=== PATIENT | female | born 1975 | race Two or more races ===

== ENCOUNTER 2018-04-05 15:35 | Emergency (ER) | payer OTHER ==
[~2018-04-05] VITALS: Ht 152.4 cm; Wt 70.3 kg
[2018-04-05] MEDS ORDERED: TENORMIN25 MG (15:43)
== END 2018-04-05 16:56 | disposition home or self-care (01) ==
LOC: ER 15:35
DX: M54.2 Cervicalgia (principal); M62.838 Other muscle spasm

== ENCOUNTER → 2018-12-17 | Emergency (ER) | payer OTHER ==
[~2018-12-17] VITALS: Ht 152.4 cm; Wt 71.2 kg
[~2018-12-17] MED LIST: CEFACLOR500 MG PO; TENORMIN25 MG
== END | disposition home or self-care (01) ==
LOC: ER 02:43
DX: H66.91 Otitis media, unspecified, right ear (principal)

== ENCOUNTER 2020-12-05 16:01 | Emergency (ER) | payer OTHER ==
[~2020-12-05] VITALS: Ht 152.4 cm; Wt 74.4 kg
[2020-12-05] MEDS ORDERED: COZAAR25 MG (16:46)
[2020-12-05] MEDS ORDERED: PRILOSEC OTC20 MG (16:47)
[2020-12-05] MEDS ORDERED: PEPCID AC20 MG PO (19:07)
== END 2020-12-06 | disposition home or self-care (01) ==
LOC: ER 16:01
DX: K21.9 Gastro-esophageal reflux disease without esophagitis (principal); R07.89 Other chest pain; I10 Essential (primary) hypertension

== ENCOUNTER 2021-11-26 05:20 | Emergency (ER) | payer OTHER ==
[~2021-11-26] VITALS: Ht 152.4 cm; Wt 70.8 kg
[~2021-11-26 05:20] MED LIST changes: +COZAAR25 MG; +PEPCID AC20 MG PO; +PRILOSEC OTC20 MG
== END 2021-11-26 08:28 ==
LOC: ER 05:20
DX: R00.2 Palpitations (principal); Z88.2 Allergy status to sulfonamides; I10 Essential (primary) hypertension

== ENCOUNTER 2022-10-02 06:33 | Emergency (ER) | payer OTHER ==
[~2022-10-02] VITALS: Ht 152.4 cm; Wt 71.2 kg
[~2022-10-02 06:33] MED LIST changes: +ATIVAN1 M1 PO
[2022-10-02] MEDS ORDERED: COZAAR50 MG PO (06:51)
[2022-10-02] MEDS ORDERED: MAALOX ADVANCE355 ML PO (09:33)
== END 2022-10-02 09:50 | disposition home or self-care (01) ==
LOC: ER 06:33
DX: R13.10 Dysphagia, unspecified (principal); I10 Essential (primary) hypertension; Z88.0 Allergy status to penicillin; Z88.2 Allergy status to sulfonamides

== ENCOUNTER 2023-03-30 09:04 | Emergency (ER) | payer OTHER ==
[~2023-03-30] VITALS: Ht 152.4 cm; Wt 69.4 kg
[~2023-03-30 09:04] MED LIST changes: +COZAAR50 MG PO; +MAALOX ADVANCE355 ML PO
[2023-03-30] MEDS ORDERED: ATIVAN1 M1 PO (09:16)
[2023-03-30 10:34] LABS: HEMOGLOBIN 14.1 g/dL (12.0-15.00); MEAN CELL VOLUME 87.3 fL (80.00-100.00); MEAN CORPUSCULAR HGB CONC 34.3 g/dl (32.0-36.0); PLATELET COUNT 215 K/uL (150-450); RED BLOOD COUNT 4.69 M/uL (4.00-6.00); RED CELL DISTRIBUTION WIDTH 13.2 % (11.5-14.5)
== END 2023-03-30 11:30 | disposition home or self-care (01) ==
LOC: ER 09:05
PROVIDERS: General Practice
DX: J32.9 Chronic sinusitis, unspecified (principal); Z88.0 Allergy status to penicillin; Z88.2 Allergy status to sulfonamides

== ENCOUNTER 2023-09-06 16:37 | Emergency (ER) | payer OTHER ==
[~2023-09-06] VITALS: Ht 165.1 cm; Wt 67.1 kg
[2023-09-06] MEDS ORDERED: LOSARTAN POTAS100 MG PO (16:56)
[2023-09-06] MEDS ORDERED: KETOROLAC TROMETHAMINE 30 MG VIAL ONE (17:20)
[2023-09-06] MEDS ORDERED: KETOROLAC TROMETHAMINE 30 MG VIAL IM ONE (17:30)
[2023-09-06 17:32] LABS: HEMATOCRIT 40.3 % (36.0-45.00); HEMOGLOBIN 13.7 g/dL (12.0-15.00); MEAN CELL VOLUME 88.3 fL (80.00-100.00); PLATELET COUNT 217 K/uL (150-450); RED BLOOD COUNT 4.56 M/uL (4.00-6.00); RED CELL DISTRIBUTION WIDTH 13.2 % (11.5-14.5)
[2023-09-06 18:06] LABS: CALCIUM 9.7 mg/dL (8.5-10.1); CREATININE SERUM 0.59 mg/dL (0.55-1.02); GFR 107.89
[2023-09-06 18:17] LABS: POTASSIUM 3.8 mEq/L (3.5-5.1)
== END 2023-09-06 19:03 | disposition home or self-care (01) ==
LOC: ER 16:38
PROVIDERS: General Practice
DX: M54.2 Cervicalgia (principal); Z88.0 Allergy status to penicillin; Z88.2 Allergy status to sulfonamides; I10 Essential (primary) hypertension; Z98.890 Other specified postprocedural states; M50.322 Other cervical disc degeneration at C5-C6 level

== ENCOUNTER 2024-05-20 06:23 | Emergency (ER) | payer OTHER ==
[~2024-05-20] VITALS: Ht 152.4 cm; Wt 63.5 kg
[~2024-05-20 06:23] MED LIST changes: +LOSARTAN POTAS100 MG PO
[2024-05-20] MEDS ORDERED: HYDROCHLOROTH12.5 MG (07:19)
[2024-05-20] MEDS ORDERED: NASAL MIST126 ML (07:19)
[2024-05-20] MEDS ORDERED: KETOROLAC TROMETHAMINE 30 MG VIAL IV ONE (09:00)
[2024-05-20 09:46] LABS: HEMOGLOBIN 13.6 g/dL (12.0-15.00); MEAN CELL VOLUME 88.7 fL (80.00-100.00); MEAN CORPUSCULAR HEMOGLOBIN 30.2 pg (27.00-32.0); PLATELET COUNT 222 K/uL (150-450); RED BLOOD COUNT 4.51 M/uL (4.00-6.00); RED CELL DISTRIBUTION WIDTH 13.4 % (11.5-14.5)
[2024-05-20 10:21] LABS: CALCIUM 9.3 mg/dL (8.5-10.1); CREATININE SERUM 0.5 mg/dL (0.55-1.02); GFR 130.6; POTASSIUM 3.91 mEq/L (3.5-5.1)
[2024-05-20 10:33] LABS: PH,URINE 7.5 (5.0-8.0); URINE APPEARANCE Clear; URINE BILIRRUBIN Negative (NEGATIVE); URINE BLOOD Negative; URINE COLOR Yellow; URINE GLUCOSE Negative (NEGATIVE); URINE KETONE Negative (NEGATIVE); URINE LEUKOCYTE Negative; URINE NITRATE Negative; URINE PROTEIN Negative (NEGATIVE); URINE UROBILINOGEN 0.2 E.U./dl
[2024-05-20 10:54] LABS: URINE BACTERIA 236.1 uL (0.0-1933); URINE EPITHELIAL CELLS 62.9 uL (0.0-38.8); URINE RBC 2.2 uL (0.0-20.8); URINE WBC 5.5 uL (0.0-23.2)
== END 2024-05-20 15:11 | disposition home or self-care (01) ==
LOC: ER 06:23
PROVIDERS: Emergency Medicine
DX: R10.9 Unspecified abdominal pain (principal); I10 Essential (primary) hypertension; F32.89 Other specified depressive episodes; Z88.2 Allergy status to sulfonamides; Z88.0 Allergy status to penicillin; N20.0 Calculus of kidney

== ENCOUNTER 2024-06-26 09:25 | Emergency (ER) | payer OTHER ==
[~2024-06-26] VITALS: Ht 152.4 cm; Wt 64.0 kg
[~2024-06-26 09:25] MED LIST changes: +HYDROCHLOROTH12.5 MG; +NASAL MIST126 ML
[2024-06-26] MEDS ORDERED: HYOSCYAMINE SULFATE 0.125 MG TAB.SUBL ONE (10:42)
[2024-06-26] MEDS ORDERED: 0.9 % SODIUM CHLORIDE 1,000 ML IV SCH (10:45)
[2024-06-26] MEDS ORDERED: HYOSCYAMINE SULFATE 0.125 MG TAB.SUBL SL ONE (10:45)
[2024-06-26 11:02] LABS: HEMATOCRIT 40.7 % (36.0-45.00); HEMOGLOBIN 13.8 g/dL (12.0-15.00); MEAN CELL VOLUME 88.2 fL (80.00-100.00); MEAN CORPUSCULAR HEMOGLOBIN 29.9 pg (27.00-32.0); MEAN CORPUSCULAR HGB CONC 33.9 g/dl (32.0-36.0); PLATELET COUNT 178 K/uL (150-450); RED BLOOD COUNT 4.61 M/uL (4.00-6.00); RED CELL DISTRIBUTION WIDTH 13.3 % (11.5-14.5)
[2024-06-26 11:24] LABS: ALBUMIN 3.8 gm/dL (3.4-5.0); BILIRUBIN TOTAL 0.39 mg/dL (0.3-1.2); CALCIUM 9.1 mg/dL (8.5-10.1); CREATININE SERUM 0.59 mg/dL (0.55-1.02); GFR 107.89; GLOBULINA 3.3 G/DL (2.4-3.5); POTASSIUM 3.84 mEq/L (3.5-5.1); TOTAL PROTEIN 7.1 gm/dL (6.4-8.2)
[2024-06-26 12:06] LABS: URINE APPEARANCE Clear; URINE BILIRRUBIN Negative (NEGATIVE); URINE BLOOD Negative; URINE COLOR Yellow; URINE GLUCOSE Negative (NEGATIVE); URINE KETONE Negative (NEGATIVE); URINE LEUKOCYTE Trace; URINE NITRATE Negative; URINE PROTEIN Negative (NEGATIVE); URINE UROBILINOGEN 0.2 E.U./dl
[2024-06-26 12:08] LABS: URINE BACTERIA 266.7 uL (0.0-1933); URINE EPITHELIAL CELLS 28.1 uL (0.0-38.8); URINE WBC 6.3 uL (0.0-23.2)
[2024-06-26 12:14] LABS: URINE CAST 0.14 uL (0.0-1.40); URINE RBC 0.8 uL (0.0-20.8)
[2024-06-26 12:29] LABS: COVID-19 AG NEGATIVE (NEGATIVE); INFLUENZA A AG POSITIVE (NEGATIVE)
[2024-06-26] MEDS ORDERED: GUAIFENESIN/DEXTROMETHORPHAN 100MG/10ML BLIST.PACK PO ONE (14:29)
[2024-06-26] MEDS ORDERED: OSELTAMIVIR PHOSPHATE 75 MG CAPSULE PO ONE ×2 (14:29→14:30)
[2024-06-26] MEDS ORDERED: GUAIFEN/DEXTROMETHORPHAN/PE 10 ML BLIST.PACK PO ONE (14:30)
== END 2024-06-26 14:49 | disposition home or self-care (01) ==
LOC: ER 09:26
PROVIDERS: Emergency Medicine
DX: K52.9 Noninfective gastroenteritis and colitis, unspecified (principal); J10.1 Influenza due to other identified influenza virus with other respiratory manifestations; R10.9 Unspecified abdominal pain; Z20.822 Contact with and (suspected) exposure to COVID-19; I10 Essential (primary) hypertension; Z88.0 Allergy status to penicillin; Z88.2 Allergy status to sulfonamides